=== PATIENT | female | born 1950 | race Native Hawaiian/Other Pacific Islander ===

== ENCOUNTER 2017-01-02 09:47 | Outpatient (CLI) | payer BC | END 2017-01-02 11:00 | disposition home or self-care (01) | LOC: MAMMO 09:47 → RAD 10:00 → MAMMO 11:00 | DX: Z12.31 Encounter for screening mammogram for malignant neoplasm of breast (principal) ==

== ENCOUNTER 2018-01-05 13:02 | Outpatient (CLI) | payer BC | END 2018-01-05 23:23 | disposition home or self-care (01) | LOC: MAMMO 13:02 | DX: Z12.31 Encounter for screening mammogram for malignant neoplasm of breast (principal) ==

== ENCOUNTER 2018-08-05 13:42 | Emergency (ER) | payer BC ==
[~2018-08-05] VITALS: Ht 170.2 cm; Wt 89.4 kg
[2018-08-05 13:50] VITALS: TEMP 97.8
[2018-08-05 14:39] LABS: PLATELET COUNT 330 K/uL (152-353)
[2018-08-05 14:45] LABS: POTASSIUM 4.2 mmol/L (3.6-5.2); SODIUM 138 mmol/L (136-145)
[2018-08-05] MEDS ORDERED: BUTAL/APAP1 TAB PO (15:00)
[2018-08-05] MEDS ORDERED: HYDROXYZINE HYD25 MG PO (15:01)
[2018-08-05] MEDS ORDERED: GLYBURIDE2.5 M1 PO (15:01)
[2018-08-05] MEDS ORDERED: HYDR25TA60 PO (15:02)
[2018-08-05] MEDS ORDERED: LISI20TA11 PO (15:02)
[2018-08-05] MEDS ORDERED: METFORMIN ER1000 MG PO (15:02)
[2018-08-05] MEDS ORDERED: SERT100T PO (15:03)
[2018-08-05] MEDS ORDERED: PANTOPRAZOLE 40MG TA PO (15:03)
[2018-08-05] MEDS ORDERED: SIMV40TA57 PO (15:04)
[2018-08-05] MEDS ORDERED: LEVO0.0529 PO (15:04)
[2018-08-05] MEDS ORDERED: TRAZODONE HYDR150 MG PO (15:04)
[2018-08-05] MEDS ORDERED: ALPR0.5T24 PO (15:05)
[2018-08-05 16:48] LABS: PARTIAL THROMBOPLASTIN TIME 24.8 SECONDS (24.5-33.6)
[2018-08-05 18:20] VITALS: BP 113/44
== END 2018-08-05 18:20 | disposition home or self-care (01) ==
LOC: ED 13:42
PROVIDERS: Emergency Medicine
DX: G43.909 Migraine, unspecified, not intractable, without status migrainosus (principal)
CPT/HCPCS: 36415; 80053; 82550; 82553; 84484; 85027; 85610; 85651; 85730; 93005; 96374; 96375; 96376; 99284; J2175; J2405

== ENCOUNTER 2019-01-21 10:23 | Outpatient (CLI) | payer BC ==
[~2019-01-21 10:23] MED LIST: ALPR0.5T24 PO; BUTAL/APAP1 TAB PO; GLYBURIDE2.5 M1 PO; HYDR25TA60 PO; HYDROXYZINE HYD25 MG PO; LEVO0.0529 PO; LISI20TA11 PO; METFORMIN ER1000 MG PO; PANTOPRAZOLE 40MG TA PO; SERT100T PO; SIMV40TA57 PO; TRAZODONE HYDR150 MG PO
== END 2019-01-21 19:37 | disposition home or self-care (01) ==
LOC: MAMMO 10:23
DX: Z12.31 Encounter for screening mammogram for malignant neoplasm of breast (principal)

== ENCOUNTER 2019-03-26 10:35 | Outpatient (CLI) | payer BC | END 2019-03-26 10:49 | disposition short-term general hospital (02) | LOC: AMB 10:35 | DX: E16.2 Hypoglycemia, unspecified (principal) | CPT/HCPCS: A0425; A0427 ==

== ENCOUNTER 2019-03-26 10:50 | Emergency (ER) | payer BC ==
[~2019-03-26] VITALS: Ht 170.2 cm; Wt 77.1 kg
[2019-03-26 10:50] VITALS: TEMP 97.9
[2019-03-26 11:42] LABS: PLATELET COUNT 315 K/uL (152-353)
[2019-03-26 11:52] LABS: SODIUM 143 mmol/L (136-145)
[2019-03-26 15:22] VITALS: BP 144/58
== END 2019-03-26 15:22 | disposition home or self-care (01) ==
LOC: ED 10:53
PROVIDERS: Emergency Medicine Emergency Medical Services
DX: E11.649 Type 2 diabetes mellitus with hypoglycemia without coma (principal)
CPT/HCPCS: 80053; 80307; 81000; 82550; 82962; 84484; 85027; 90715; 93005; 96374; 99284; J7060